=== PATIENT | female | born 1955 | race Caucasian/White ===

== ENCOUNTER 2019-03-21 14:01 | Observation (INO) | payer MEDICAID, SELFPAY | END 2019-03-22 10:34 | disposition skilled nursing facility (03) | PROVIDERS: Admitting Provider Internal Medicine; Family Provider Internal Medicine; Visit Provider Internal Medicine | DX: D50.9 Iron deficiency anemia, unspecified (principal) ==

== ENCOUNTER 2019-03-28 06:00 | Outpatient (RCR) | payer MEDICAID, SELFPAY | END 2019-03-29 23:59 | disposition home or self-care (01) | LOC: LAB 06:00 | PROVIDERS: Family Provider Internal Medicine; Visit Provider Internal Medicine | DX: D64.9 Anemia, unspecified (principal); I27.0 Primary pulmonary hypertension; I73.00 Raynaud's syndrome without gangrene; E11.9 Type 2 diabetes mellitus without complications; N39.0 Urinary tract infection, site not specified; K72.91 Hepatic failure, unspecified with coma; K92.2 Gastrointestinal hemorrhage, unspecified; E16.2 Hypoglycemia, unspecified; J81.1 Chronic pulmonary edema | CPT/HCPCS: 36415; 80048; 85025 ×2 ==

== ENCOUNTER 2019-03-28 12:04 | Emergency (ER) | payer MEDICAID, SELFPAY | END 2019-03-28 15:13 | disposition admitted as inpatient to this hospital (09) | LOC: ER 05-12 10:56 | PROVIDERS: Emergency Provider Family Medicine; Family Provider Internal Medicine; PCP Internal Medicine | DX: K72.10 Chronic hepatic failure without coma (principal); D64.9 Anemia, unspecified; K74.60 Unspecified cirrhosis of liver; I10 Essential (primary) hypertension; E11.9 Type 2 diabetes mellitus without complications; Z86.718 Personal history of other venous thrombosis and embolism; E78.5 Hyperlipidemia, unspecified; Z86.73 Personal history of transient ischemic attack (TIA), and cerebral infarction without residual deficits; Q27.39 Arteriovenous malformation, other site | CPT/HCPCS: 36415; 80053; 81001; 82140; 82962; 84443; 85025; 87040; 87086; 99285 ==

== ENCOUNTER 2019-03-28 15:13 | Inpatient (IN) | payer MEDICAID, SELFPAY ==
[2019-03-30 03:55] VITALS: BP 128/74; PULSE 74; RESP 18; TEMP 36.5; O2SAT 100
[2019-03-30 05:30] LABS: Add RBC Morph No
[2019-03-30 05:35] LABS: Basophils % 0.9 %; Eosinophils # 0.3 10^3/uL (0.0-0.8); Eosinophils % 6.8 %; Hematocrit 27.3 % (37.0-47.0); Hemoglobin 8.7 g/dL (11.5-15.3); Lymphocytes # 0.6 10^3/uL (0.8-4.8); Lymphocytes % 12.9 %; Mean Corpuscular HGB Conc 31.9 g/dL (30.0-36.0); Mean Corpuscular Hemoglobin 30.5 pg (28.0-34.0); Mean Corpuscular Volume 95.8 fL (81-99); Mean Platelet Volume 9.7 fL (7.4-10.4); Monocytes # 0.4 10^3/uL (0.2-0.9); Monocytes % 8.3 %; Neutrophils # 3.3 10^3/uL (1.8-7.7); Neutrophils % 70.9 %; Nucleated Red Blood Cells % 0 %; Platelet Count 262 10^3/cmm (130-400); Red Blood Count 2.85 10^6/uL (4.1-5.3); Red Cell Distribution Width 19.9 % (12.1-15.1); White Blood Count 4.6 10^3/uL (4.0-10.0)
[2019-03-30] MEDS: dextrose 5% 1,000 ML 50 ML IV (05:44)
[2019-03-30] MEDS: pantoprazole 40 mg SDV IVP ×2 (05:46→17:52)
[2019-03-30 05:54] LABS: Alanine Aminotransferase 14 U/L (0-33); Albumin Level 3.3 g/dL (3.5-5.2); Alkaline Phosphatase 95 IU/L (35-105); Anion Gap 13.3 (5-19); Aspartate Amino Transferase 41 U/L (0-32); Blood Urea Nitrogen 28 mg/dL (8-23); Calcium 10.3 mg/Dl (8.8-10.2); Carbon Dioxide 18 mmol/L (22-29); Chloride 113 mmol/L (98-107); Globulin 2.6 g/dL (1.3-4.6); Glomerular Filtration Rate 41.6 mL/min (90-130); Glucose 170 mg/dL (74-106); Potassium 4.3 mmol/L (3.5-5.1); Sodium 140 mmol/L (136-145); Total Bilirubin 1.6 mg/dL (0.15-1.2); Total Protein 5.9 g/dL (6.6-8.7)
[2019-03-30 07:03] LABS: Ammonia 64 umol/L (11-51)
[2019-03-30 07:13] VITALS: BP 133/75; PULSE 68; RESP 18; TEMP 36.5; O2SAT 100
[2019-03-30] MEDS: erythromycin Op Oint 1 gm 1 APPLIC EYE-RIGHT ×4 (10:05→18:02)
[2019-03-30] MEDS: midodrine 5 mg TABLET 10 MG PO (10:06)
[2019-03-30] MEDS: nystatin cream 30 gm 1 APPLIC TOPICAL ×2 (10:07→17:58)
[2019-03-30 11:10] VITALS: BP 133/72; PULSE 64; RESP 18; TEMP 36.4; O2SAT 100
--- NOTE | 2019-03-30 11:20 | PC.NURSE ---
PATIENT IN ROOM YELLING AT STAFF. NURSE IS UNABLE TO REDIRECT PATIENT. PATIENT IS ATTEMPTING TO HIT NURSES. NURSE HAS NOTIFIED DR. STOKES. ORDERS TO FOLLOW.
[2019-03-30] MEDS: LORazepam 2 mg/mL INJ 1 mL 1 MG IVP (11:36)
--- NOTE | 2019-03-30 11:47 | P.PN_ITS ---
Subjective Subjective: Interval history: This morning she is more alert, and spontaneously moving around, however, she is confused, agitated, yelling, and trying to hit nursing staff. Received 1 mg of Ativan which helped her calm down. At this time answers most questions with I do not know, I am sleeping . Vitals/I&O/Wt Last Vital Signs Temp 97.5 F L 03/30/19 11:10 Pulse 64 03/30/19 11:10 Resp 18 03/30/19 11:10 BP 133/72 03/30/19 11:10 Pulse Ox 100 03/30/19 11:10 03/29/19 03/30/19 03/30/19 22:59 06:59 14:59 Intake Total 20.833 / 20.833 Balance 20.833 / 20.833 Weight last 48 hrs Weight 77.156 kg Weight 78.744 kg Physical Exam Const: COMMON NORMALS: no apparent distress; negative for oriented x3 GENERAL APPEARANCE: combative ORIENTATION /CONSCIOUSNESS: Yes confused HENMT: COMMON NORMALS: oropharynx normal Neck/C-Spine: COMMON NORMALS: no JVD Resp: COMMON NORMALS: normal respiratory effort and clear to auscultation bilaterally AUSCULTATION: clear to auscultation bilaterally Cardio: COMMON NORMALS: no JVD, regular rhythm, S1 normal heart sound, S2 normal heart sound and no murmurs RHYTHM: regular rhythm HEART SOUNDS: S1 normal and S2 normal GI: COMMON NORMALS: normal to inspection, nondistended, normoactive bowel sounds, soft to palpation and non-tender PALPATION: Yes soft Extremity: COMMON NORMALS: no joint enlargement and no pedal edema Neuro: COMMON NORMALS: moves all extremities; negative for oriented x3 SENSORIUM/ORIENTATION: Yes somnolent SPEECH: speech normal Skin: COMMON NORMALS: no rashes or lesions noted GENERAL SKIN EXAM: no rashes or lesions noted Data Labs: Other Labs: All Labs last 24 hrs except CBC/BMP 03/29/19 03/29/19 03/29/19 05:06 05:06 05:06 RBC 2.61 L MCV 98.1 D MCH 30.3 MCHC 30.9 RDW 20.4 H MPV 9.5 Neut % (Auto) 68.8 Lymph % (Auto) 12.8 Cameron % (Auto) 11.3 Eos % (Auto) 6.1 Baso % (Auto) 0.7 Neut # (Auto) 4.0 Lymph # (Auto) 0.7 L Cameron # (Auto) 0.7 Eos # (Auto) 0.4 Baso # (Auto) 0.0 Nucleated RBC % (a uto) 0 Nucleated RBCs # 0.0 GFR Calculation 45.7 L POC Glucose Random Glucose 72 Calcium 10.3 H Total Bilirubin 2.2 H AST 37 H ALT 12 Alkaline Phosphata se 86 Ammonia 178 H Total Protein 5.2 L Albumin 3.1 L Globulin 2.1 Influenza Type A A g Influenza Type B A g 03/29/19 03/29/19 03/29/19 09:29 10:40 11:31 RBC MCV MCH MCHC RDW MPV Neut % (Auto) Lymph % (Auto) Cameron % (Auto) Eos % (Auto) Baso % (Auto) Neut # (Auto) Lymph # (Auto) Cameron # (Auto) Eos # (Auto) Baso # (Auto) Nucleated RBC % (a uto) Nucleated RBCs # GFR Calculation POC Glucose 74 87 Random Glucose Calcium Total Bilirubin AST ALT Alkaline Phosphata se Ammonia Total Protein Albumin Globulin Influenza Type A A g NEGATIVE Influenza Type B A g NEGATIVE 03/29/19 03/29/19 03/30/19 16:31 21:37 05:20 RBC 2.85 L MCV 95.8 MCH 30.5 MCHC 31.9 RDW 19.9 H MPV 9.7 Neut % (Auto) 70.9 Lymph % (Auto) 12.9 Cameron % (Auto) 8.3 Eos % (Auto) 6.8 Baso % (Auto) 0.9 Neut # (Auto) 3.3 Lymph # (Auto) 0.6 L Cameron # (Auto) 0.4 Eos # (Auto) 0.3 Baso # (Auto) 0.0 Nucleated RBC % (a uto) 0 Nucleated RBCs # 0.0 GFR Calculation POC Glucose 101 121 H Random Glucose Calcium Total Bilirubin AST ALT Alkaline Phosphata se Ammonia Total Protein Albumin Globulin Influenza Type A A g Influenza Type B A g 03/30/19 05:20 RBC MCV MCH MCHC RDW MPV Neut % (Auto) Lymph % (Auto) Cameron % (Auto) Eos % (Auto) Baso % (Auto) Neut # (Auto) Lymph # (Auto) Cameron # (Auto) Eos # (Auto) Baso # (Auto) Nucleated RBC % (a uto) Nucleated RBCs # GFR Calculation 41.6 L POC Glucose Random Glucose Calcium 10.3 H Total Bilirubin 1.6 H AST 41 H ALT 14 Alkaline Phosphata se 95 Ammonia 64 H Total Protein 5.9 L Albumin 3.3 L Globulin 2.6 Influenza Type A A g Influenza Type B A g A&P Assessment and plan (1) Toxic metabolic encephalopathy: More alert, with spontaneous movements this morning, however, confused, yelling and trying to hit staff. Agitation improved with 1 mg of Ativan. Continues with one-to-one sitter. Ammonia this morning is improved, down to 64. She appears to have also encephalopathy secondary to urinary tract infection. Status: Acute Code(s): G92 - Toxic encephalopathy (2) Complicated urinary tract infection: With acute encephalopathy. Previous history of ESBL UTI. Currently 80-90,000 CFU gram-negative rods in urine. We will start her on Primaxin. Status: Acute Code(s): N39.0 - Urinary tract infection, site not specified (3) Acute on chronic anemia: Recheck CBC. Status: Acute Code(s): D64.9 - Anemia, unspecified (4) Hypoglycemia: Improved. Continue D5W for now. Once more alert trial of clear liquid diet. Status: Acute Code(s): E16.2 - Hypoglycemia, unspecified (5) Hepatic encephalopathy: Continue lactulose. Not taking much by mouth due to encephalopathy. Has been receiving lactulose enemas. Continue for now until able to resume oral intake. Status: Acute Code(s): K72.90 - Hepatic failure, unspecified without coma (6) Difficult intravenous access: Requiring PICC line during prior admission. Status: Acute Code(s): Z78.9 - Other specified health status (7) Anemia: Chronic multifactorial anemia with AVM, history of esophageal variceal bleeding, with iron deficiency anemia, anemia of chronic disease, suspected early MDS Status: Acute Code(s): D64.9 - Anemia, unspecified (8) Chronic diastolic CHF (congestive heart failure): Status: Acute Code(s): I50.32 - Chronic diastolic (congestive) heart failure (9) HTN (hypertension): Status: Acute Code(s): I10 - Essential (primary) hypertension (10) History of CVA (cerebrovascular accident): Status: Acute Code(s): Z86.73 - Personal history of transient ischemic attack (TIA), and cerebral infarction without residual deficits (11) Chronic kidney disease, stage III (moderate): Status: Acute Code(s): N18.3 - Chronic kidney disease, stage 3 (moderate) (12) Anxiety disorder: Status: Acute Code(s): F41.9 - Anxiety disorder, unspecified (13) Depression: Status: Acute Code(s): F32.9 - Major depressive disorder, single episode, unspecified (14) ZEB (obstructive sleep apnea): Status: Acute Code(s): G47.33 - Obstructive sleep apnea (adult) (pediatric) (15) DM type 2 (diabetes mellitus, type 2): Status: Acute Code(s): E11.9 - Type 2 diabetes mellitus without complications Additional A&P Information Additional A&P Information: Glaucoma, Cataracts, Chronic conjunctivitis secondary to trauma Attestations Medical Necessity Statement*: Continue admission for assessment of management of acute encephalopathy, complicated UTI with history of ESBL infection, acute on chronic anemia. Coding Level of Care Code Acute Debt Recovery Officer for Chg Fwd Diagnoses Toxic metabolic encephalopathy G92 Complicated urinary tract infection N39.0 Acute on chronic anemia D64.9 Hypoglycemia E16.2 Hepatic encephalopathy K72.90 Difficult intravenous access Z78.9 Anemia D64.9 Chronic diastolic CHF (congestive heart failure) I50.32 HTN (hypertension) I10 History of CVA (cerebrovascular accident) Z86.73 Chronic kidney disease, stage III (moderate) N18.3 Anxiety disorder F41.9 Depression F32.9 ZEB (obstructive sleep apnea) G47.33 DM type 2 (diabetes mellitus, type 2) E11.9
[2019-03-30] MEDS: lactulose oral liq 20 gm/30 mL UDC PR ×4 (12:23→20:18)
--- NOTE | 2019-03-30 13:20 | PC.PHAR ---
RENAL DOSING PER PROTOCOL. ADJUSTED PRIMAXIN TO Q8H FROM Q6H
[2019-03-30] MEDS: neomycin-poly-dex Op 5 mL Btl EYE-BOTH ×3 (13:26→22:30)
[2019-03-30 16:00] VITALS: BP 110/63; PULSE 66; RESP 18; TEMP 36.4; O2SAT 99
[2019-03-30 17:43] LABS: Glucose Point of Care 130 mg/dL (70-110)
[2019-03-30 18:46] VITALS: PULSE 95; O2SAT 98
[2019-03-30 22:16] LABS: Glucose Point of Care 166 mg/dL (70-110)
[2019-03-31] VITALS (8 sets, daily range): BP systolic 118–154; BP diastolic 66–82; PULSE 60–72; RESP 16–30; TEMP 36.4–37.4; O2SAT 99–100
[2019-03-31] MEDS: lactulose oral liq 20 gm/30 mL UDC PR ×4 (01:53→09:39)
[2019-03-31] MEDS: erythromycin Op Oint 1 gm 1 APPLIC EYE-RIGHT ×6 (01:54→22:00)
[2019-03-31] MEDS: dextrose 5% 1,000 ML 50 ML IV ×2 (02:40→21:53)
[2019-03-31] MEDS: morphine 4 mg/mL SDV 1 mL 2 MG IVP (04:13)
[2019-03-31] MEDS: neomycin-poly-dex Op 5 mL Btl EYE-BOTH ×6 (04:14→21:57)
[2019-03-31 05:58] LABS: Basophils % 0.6 %; Eosinophils # 0.3 10^3/uL (0.0-0.8); Eosinophils % 6.2 %; Hematocrit 25.6 % (37.0-47.0); Hemoglobin 7.9 g/dL (11.5-15.3); Lymphocytes # 0.3 10^3/uL (0.8-4.8); Mean Corpuscular HGB Conc 30.9 g/dL (30.0-36.0); Mean Corpuscular Hemoglobin 29.7 pg (28.0-34.0); Mean Corpuscular Volume 96.2 fL (81-99); Mean Platelet Volume 9.3 fL (7.4-10.4); Monocytes # 0.5 10^3/uL (0.2-0.9); Monocytes % 9.9 %; Neutrophils # 3.7 10^3/uL (1.8-7.7); Neutrophils % 76.1 %; Nucleated Red Blood Cells % 0 %; Platelet Count 237 10^3/cmm (130-400); Red Blood Count 2.66 10^6/uL (4.1-5.3); Red Cell Distribution Width 18.6 % (12.1-15.1); White Blood Count 4.9 10^3/uL (4.0-10.0)
[2019-03-31 06:11] LABS: Ammonia 106 umol/L (11-51)
[2019-03-31 06:16] LABS: Add RBC Morph No
[2019-03-31 06:24] LABS: Alanine Aminotransferase 13 U/L (0-33); Albumin Level 2.5 g/dL (3.5-5.2); Alkaline Phosphatase 84 IU/L (35-105); Anion Gap 15.2 (5-19); Aspartate Amino Transferase 37 U/L (0-32); Blood Urea Nitrogen 24 mg/dL (8-23); Calcium 10.1 mg/Dl (8.8-10.2); Carbon Dioxide 17 mmol/L (22-29); Chloride 110 mmol/L (98-107); Globulin 3.4 g/dL (1.3-4.6); Glomerular Filtration Rate 45.7 mL/min (90-130); Glucose 137 mg/dL (74-106); Potassium 4.2 mmol/L (3.5-5.1); Sodium 138 mmol/L (136-145); Total Bilirubin 1.1 mg/dL (0.15-1.2); Total Protein 5.9 g/dL (6.6-8.7)
[2019-03-31] MEDS: pantoprazole 40 mg SDV IVP ×2 (06:32→16:36)
[2019-03-31 06:52] LABS: Glucose Point of Care 128 mg/dL (70-110)
[2019-03-31] MEDS: nystatin cream 30 gm 1 APPLIC TOPICAL ×2 (09:35→17:24)
[2019-03-31] MEDS: midodrine 5 mg TABLET 10 MG PO ×3 (09:36→21:56)
[2019-03-31 11:36] LABS: Glucose Point of Care 130 mg/dL (70-110)
--- NOTE | 2019-03-31 16:42 | P.PN_ITS ---
Subjective Subjective: Interval history: Today she is more responsive. Denies any pain. Reports she is very hungry. Still with somewhat labile affect, screaming out that she is starving and wants to eat right now. Vitals/I&O/Wt Last Vital Signs Temp 99.3 F 03/31/19 15:17 Pulse 72 03/31/19 15:17 Resp 16 03/31/19 15:17 BP 130/80 03/31/19 15:17 Pulse Ox 100 03/31/19 15:17 03/31/19 03/31/19 03/31/19 06:59 14:59 22:59 Intake Total 1134.167 / 1234.167 340 / 340 Output Total 900 / 900 Balance 1134.167 / 354.167 -560 / -560 Weight last 48 hrs Weight 75.886 kg Weight 77.61 kg Weight 77.156 kg Physical Exam Const: COMMON NORMALS: no apparent distress; negative for oriented x3 (Knows she is in the hospital, does not remember the year) GENERAL APPEARANCE: other (Labile affect. Intermittently tossing in bed. Does answer questions and follow some commands today.) ORIENTATION/CONSCIOUSNESS: Yes confused HENMT: COMMON NORMALS: oropharynx normal Neck/C-Spine: COMMON NORMALS: no JVD Resp: COMMON NORMALS: normal respiratory effort and clear to auscultation bilaterally AUSCULTATION: clear to auscultation bilaterally Cardio: COMMON NORMALS: no JVD, regular rhythm, S1 normal heart sound, S2 normal heart sound and no murmurs RHYTHM: regular rhythm HEART SOUNDS: S1 normal and S2 normal GI: COMMON NORMALS: normal to inspection, nondistended, normoactive bowel sounds, soft to palpation and non-tender PALPATION: Yes soft Extremity: COMMON NORMALS: no joint enlargement and no pedal edema Neuro: COMMON NORMALS: moves all extremities; negative for oriented x3 (Knows she is in the hospital, does not remember the year) SENSORIUM/ORIENTATION: Yes somnolent SPEECH: speech normal Skin: COMMON NORMALS: no rashes or lesions noted GENERAL SKIN EXAM: no rashes or lesions noted A&P Assessment and plan (1) Toxic metabolic encephalopathy: Mental status improving. Still with intermittent episodes of anxiety, labile affect, yelling out her requests/throwing a tantrum. But today she knows she is in the hospital. Does not remember the year. Currently denies complaints other than being hungry. Ammonia better compared to admission, but worse compared to yesterday at 106. She appears to have also encephalopathy secondary to urinary tract infection. Today with concern for some possible aspiration with thin liquids. For now empirically start nectar thick liquids. Will ask speech therapy to assess her. Status: Acute Code(s): G92 - Toxic encephalopathy (2) Complicated urinary tract infection: With acute encephalopathy. ESBL UTI. Continue Primaxin. For now continue PICC line due to difficult venous access and need for course of IV antibiotic, follow-up blood culture. Status: Acute Code(s): N39.0 - Urinary tract infection, site not specified (3) Acute on chronic anemia: Recheck CBC. Status: Acute Code(s): D64.9 - Anemia, unspecified (4) Hypoglycemia: Improved. Diet advanced. Status: Acute Code(s): E16.2 - Hypoglycemia, unspecified (5) Hepatic encephalopathy: Continue lactulose. If oral intake stable may transition to oral lactulose. Status: Acute Code(s): K72.90 - Hepatic failure, unspecified without coma (6) Difficult intravenous access: Requiring PICC line during prior admission. Status: Acute Code(s): Z78.9 - Other specified health status (7) Anemia: Chronic multifactorial anemia with AVM, history of esophageal variceal bleeding, with iron deficiency anemia, anemia of chronic disease, suspected early MDS Hemoglobin down slightly to 7.9. Continue to monitor. Status: Acute Code(s): D64.9 - Anemia, unspecified (8) Chronic diastolic CHF (congestive heart failure): Status: Acute Code(s): I50.32 - Chronic diastolic (congestive) heart failure (9) HTN (hypertension): Status: Acute Code(s): I10 - Essential (primary) hypertension (10) History of CVA (cerebrovascular accident): Status: Acute Code(s): Z86.73 - Personal history of transient ischemic attack (TIA), and cerebral infarction without residual deficits (11) Chronic kidney disease, stage III (moderate): Status: Acute Code(s): N18.3 - Chronic kidney disease, stage 3 (moderate) (12) Anxiety disorder: Status: Acute Code(s): F41.9 - Anxiety disorder, unspecified (13) Depression: Status: Acute Code(s): F32.9 - Major depressive disorder, single episode, unspecified (14) ZEB (obstructive sleep apnea): Status: Acute Code(s): G47.33 - Obstructive sleep apnea (adult) (pediatric) (15) DM type 2 (diabetes mellitus, type 2): Status: Acute Code(s): E11.9 - Type 2 diabetes mellitus without complications Additional A&P Information Additional A&P Information: Glaucoma, Cataracts, Chronic conjunctivitis secondary to trauma Attestations Medical Necessity Statement*: Continue admission for assessment management of acute encephalopathy with complicated UTI, hepatic encephalopathy, with multiple other medical comorbidities.. Coding Level of Care Code Acute Cotton Bag Clipper for Chg Fwd Exam Problem Focused Diagnoses Toxic metabolic encephalopathy G92 Complicated urinary tract infection N39.0 Acute on chronic anemia D64.9 Hypoglycemia E16.2 Hepatic encephalopathy K72.90 Difficult intravenous access Z78.9 Anemia D64.9 Chronic diastolic CHF (congestive heart failure) I50.32 HTN (hypertension) I10 History of CVA (cerebrovascular accident) Z86.73 Chronic kidney disease, stage III (moderate) N18.3 Anxiety disorder F41.9 Depression F32.9 ZEB (obstructive sleep apnea) G47.33 DM type 2 (diabetes mellitus, type 2) E11.9
[2019-03-31 16:58] LABS: Glucose Point of Care 208 mg/dL (70-110)
[2019-03-31 21:02] LABS: Glucose Point of Care 166 mg/dL (70-110)
[2019-04-01] VITALS (9 sets, daily range): BP systolic 112–137; BP diastolic 74–80; PULSE 63–80; RESP 17–19; TEMP 36.7–37.2; O2SAT 97–100; BMI 27.1
[2019-04-01] MEDS: lactulose oral liq 20 gm/30 mL UDC PR ×3 (00:19→04:49)
[2019-04-01] MEDS: neomycin-poly-dex Op 5 mL Btl EYE-BOTH ×6 (02:23→21:47)
[2019-04-01] MEDS: erythromycin Op Oint 1 gm 1 APPLIC EYE-RIGHT ×6 (02:24→22:54)
[2019-04-01] MEDS: pantoprazole 40 mg SDV IVP ×2 (04:49→16:29)
[2019-04-01 07:00] LABS: Glucose Point of Care 157 mg/dL (70-110)
[2019-04-01 07:33] LABS: Basophils % 0.7 %; Eosinophils # 0.3 10^3/uL (0.0-0.8); Eosinophils % 5.8 %; Hematocrit 24.9 % (37.0-47.0); Hemoglobin 7.8 g/dL (11.5-15.3); Lymphocytes # 0.4 10^3/uL (0.8-4.8); Lymphocytes % 8.1 %; Mean Corpuscular HGB Conc 31.3 g/dL (30.0-36.0); Mean Corpuscular Hemoglobin 29.7 pg (28.0-34.0); Mean Corpuscular Volume 94.7 fL (81-99); Mean Platelet Volume 9.4 fL (7.4-10.4); Monocytes # 0.6 10^3/uL (0.2-0.9); Monocytes % 14.2 %; Neutrophils # 3.2 10^3/uL (1.8-7.7); Neutrophils % 70.8 %; Nucleated Red Blood Cells % 0 %; Platelet Count 256 10^3/cmm (130-400); Red Blood Count 2.63 10^6/uL (4.1-5.3); Red Cell Distribution Width 17.3 % (12.1-15.1); White Blood Count 4.5 10^3/uL (4.0-10.0)
[2019-04-01 07:51] LABS: Ammonia 83 umol/L (11-51)
[2019-04-01 07:52] LABS: Alanine Aminotransferase 13 U/L (0-33); Albumin Level 2.8 g/dL (3.5-5.2); Alkaline Phosphatase 89 IU/L (35-105); Anion Gap 12.4 (5-19); Aspartate Amino Transferase 42 U/L (0-32); Blood Urea Nitrogen 21 mg/dL (8-23); Calcium 9.9 mg/Dl (8.8-10.2); Carbon Dioxide 17 mmol/L (22-29); Chloride 112 mmol/L (98-107); Globulin 2.7 g/dL (1.3-4.6); Glomerular Filtration Rate 45.7 mL/min (90-130); Glucose 131 mg/dL (74-106); Potassium 4.4 mmol/L (3.5-5.1); Sodium 137 mmol/L (136-145); Total Bilirubin 0.8 mg/dL (0.15-1.2); Total Protein 5.5 g/dL (6.6-8.7)
[2019-04-01] MEDS: midodrine 5 mg TABLET 10 MG PO ×3 (09:32→21:45)
[2019-04-01] MEDS: nystatin cream 30 gm 1 APPLIC TOPICAL ×2 (09:34→19:40)
[2019-04-01 12:12] LABS: Glucose Point of Care 228 mg/dL (70-110)
[2019-04-01 19:01] LABS: Glucose Point of Care 160 mg/dL (70-110)
--- NOTE | 2019-04-01 19:02 | P.PN_ITS ---
Subjective Subjective: Interval history: Today she is more awake still. Knows she is in the hospital. When asked about the year states 20 . Denies current complaints. Reports she is overall feeling better. Vitals/I&O/Wt Last Vital Signs Temp 98.5 F 04/01/19 15:51 Pulse 80 04/01/19 15:51 Resp 18 04/01/19 15:51 BP 127/76 04/01/19 15:51 Pulse Ox 99 04/01/19 15:51 04/01/19 04/01/19 04/01/19 06:59 14:59 22:59 Intake Total 465.833 / 1823.334 360 / 360 100 / 460 Output Total 575 / 1800 Balance -109.167 / 23.334 360 / 360 100 / 460 Weight last 48 hrs Weight 78.642 kg Weight 75.886 kg Weight 77.61 kg Physical Exam Const: COMMON NORMALS: no apparent distress and oriented x3 (Knows she is in the hospital, states that the year is 20 ) GENERAL APPEARANCE: other (Labile affect. Intermittently tossing in bed. Does answer questions and follow some commands today.) HENMT: COMMON NORMALS: oropharynx normal Neck/C-Spine: COMMON NORMALS: no JVD Resp: COMMON NORMALS: normal respiratory effort and clear to auscultation bilaterally AUSCULTATION: clear to auscultation bilaterally Cardio: COMMON NORMALS: no JVD, regular rhythm, S1 normal heart sound, S2 normal heart sound and no murmurs RHYTHM: regular rhythm HEART SOUNDS: S1 normal and S2 normal GI: COMMON NORMALS: normal to inspection, nondistended, normoactive bowel sounds, soft to palpation and non-tender PALPATION: Yes soft Extremity: COMMON NORMALS: no joint enlargement and no pedal edema Neuro: COMMON NORMALS: oriented x3 (Knows she is in the hospital, states that the year is 20 ) and moves all extremities SENSORIUM/ORIENTATION: Yes somnolent SPEECH: speech normal Skin: COMMON NORMALS: no rashes or lesions noted GENERAL SKIN EXAM: no rashes or lesions noted A&P Assessment and plan (1) Toxic metabolic encephalopathy: Gradual improvement in mental status. Still with intermittent episodes of anxiety. She is generally weak, unable to take big bites of food or drinks of water. For now still too weak to try to take lactulose by mouth. Has still been requiring enemas. Ammonia with some improvement. Asked speech therapy to assess her. Continue antibiotic for complicated UTI. Status: Acute Code(s): G92 - Toxic encephalopathy (2) Complicated urinary tract infection: With acute encephalopathy. ESBL UTI. Continue Primaxin. For now continue PICC line due to difficult venous access and need for course of IV antibiotic, follow-up blood culture. Status: Acute Code(s): N39.0 - Urinary tract infection, site not specified (3) Acute on chronic anemia: Hemoglobin stabilized around 8. Status: Acute Code(s): D64.9 - Anemia, unspecified (4) Hypoglycemia: Improved. Diet advanced. Status: Acute Code(s): E16.2 - Hypoglycemia, unspecified (5) Hepatic encephalopathy: Continue lactulose. If oral intake stable may transition to oral lactulose. Status: Acute Code(s): K72.90 - Hepatic failure, unspecified without coma (6) Difficult intravenous access: Requiring PICC line during prior admission. Status: Acute Code(s): Z78.9 - Other specified health status (7) Anemia: Chronic multifactorial anemia with AVM, history of esophageal variceal bleeding, with iron deficiency anemia, anemia of chronic disease, suspected early MDS Hemoglobin down slightly to just below 8. Continue to monitor. Status: Acute Code(s): D64.9 - Anemia, unspecified (8) Chronic diastolic CHF (congestive heart failure): Status: Acute Code(s): I50.32 - Chronic diastolic (congestive) heart failure (9) HTN (hypertension): Status: Acute Code(s): I10 - Essential (primary) hypertension (10) History of CVA (cerebrovascular accident): Status: Acute Code(s): Z86.73 - Personal history of transient ischemic attack (TIA), and cerebral infarction without residual deficits (11) Chronic kidney disease, stage III (moderate): Status: Acute Code(s): N18.3 - Chronic kidney disease, stage 3 (moderate) (12) Anxiety disorder: Status: Acute Code(s): F41.9 - Anxiety disorder, unspecified (13) Depression: Status: Acute Code(s): F32.9 - Major depressive disorder, single episode, unspecified (14) ZEB (obstructive sleep apnea): Status: Acute Code(s): G47.33 - Obstructive sleep apnea (adult) (pediatric) (15) DM type 2 (diabetes mellitus, type 2): Status: Acute Code(s): E11.9 - Type 2 diabetes mellitus without complications Additional A&P Information Additional A&P Information: Glaucoma, Cataracts, Chronic conjunctivitis secondary to trauma Attestations Medical Necessity Statement*: Continue admission for assessment management of acute encephalopathy, hepatic encephalopathy, complicated UTI. Coding Level of Care Code Acute Boat Canvas Maker And Installer for [facility] Fwd Diagnoses Toxic metabolic encephalopathy G92 Complicated urinary tract infection N39.0 Acute on chronic anemia D64.9 Hypoglycemia E16.2 Hepatic encephalopathy K72.90 Difficult intravenous access Z78.9 Anemia D64.9 Chronic diastolic CHF (congestive heart failure) I50.32 HTN (hypertension) I10 History of CVA (cerebrovascular accident) Z86.73 Chronic kidney disease, stage III (moderate) N18.3 Anxiety disorder F41.9 Depression F32.9 ZEB (obstructive sleep apnea) G47.33 DM type 2 (diabetes mellitus, type 2) E11.9
[2019-04-01] MEDS: dextrose 5% 1,000 ML 50 ML IV (19:48)
[2019-04-01 21:45] LABS: Glucose Point of Care 179 mg/dL (70-110)
[2019-04-02] VITALS (8 sets, daily range): BP systolic 102–128; BP diastolic 63–82; PULSE 67–84; RESP 17–18; TEMP 36.3–37; O2SAT 94–100
[2019-04-02] MEDS: neomycin-poly-dex Op 5 mL Btl EYE-BOTH ×6 (01:32→21:31)
[2019-04-02] MEDS: lactulose oral liq 20 gm/30 mL UDC 200 GM PR (01:48)
[2019-04-02] MEDS: erythromycin Op Oint 1 gm 1 APPLIC EYE-RIGHT ×6 (02:30→23:23)
[2019-04-02] MEDS: pantoprazole 40 mg SDV IVP ×2 (06:04→18:03)
[2019-04-02 06:13] LABS: Basophils % 0.5 %; Eosinophils # 0.2 10^3/uL (0.0-0.8); Eosinophils % 4.8 %; Hematocrit 24.6 % (37.0-47.0); Hemoglobin 7.6 g/dL (11.5-15.3); Lymphocytes # 0.4 10^3/uL (0.8-4.8); Lymphocytes % 8.3 %; Mean Corpuscular HGB Conc 30.9 g/dL (30.0-36.0); Mean Corpuscular Hemoglobin 29.1 pg (28.0-34.0); Mean Corpuscular Volume 94.3 fL (81-99); Monocytes # 0.5 10^3/uL (0.2-0.9); Monocytes % 11.7 %; Neutrophils # 3.3 10^3/uL (1.8-7.7); Neutrophils % 74.5 %; Nucleated Red Blood Cells % 0 %; Platelet Count 238 10^3/cmm (130-400); Red Blood Count 2.61 10^6/uL (4.1-5.3); Red Cell Distribution Width 16.7 % (12.1-15.1); White Blood Count 4.4 10^3/uL (4.0-10.0)
[2019-04-02 06:39] LABS: Ammonia 85 umol/L (11-51)
[2019-04-02 06:40] LABS: Alanine Aminotransferase 11 U/L (0-33); Albumin Level 2.9 g/dL (3.5-5.2); Alkaline Phosphatase 91 IU/L (35-105); Anion Gap 11.2 (5-19); Aspartate Amino Transferase 38 U/L (0-32); Blood Urea Nitrogen 22 mg/dL (8-23); Calcium 9.8 mg/Dl (8.8-10.2); Carbon Dioxide 18 mmol/L (22-29); Chloride 109 mmol/L (98-107); Globulin 2.5 g/dL (1.3-4.6); Glomerular Filtration Rate 45.7 mL/min (90-130); Glucose 185 mg/dL (74-106); Potassium 4.2 mmol/L (3.5-5.1); Sodium 134 mmol/L (136-145); Total Bilirubin 0.5 mg/dL (0.15-1.2); Total Protein 5.4 g/dL (6.6-8.7)
[2019-04-02 07:51] LABS: Glucose Point of Care 171 mg/dL (70-110)
[2019-04-02 07:51] LABS: Glucose Point of Care 158 mg/dL (70-110)
[2019-04-02] MEDS: midodrine 5 mg TABLET 10 MG PO ×3 (09:48→21:22)
[2019-04-02] MEDS: nystatin cream 30 gm 1 APPLIC TOPICAL ×2 (09:49→18:18)
[2019-04-02 12:03] LABS: Glucose Point of Care 181 mg/dL (70-110)
--- NOTE | 2019-04-02 13:42 | PM.PN ---
Subjective Subjective: Interval history: She complains of being hungry. Denies any other issues. Denies any abdominal pain. Denies any flank pain. She appears to realize she is in a medical facility, but is not sure where. When asked whether she is in a longterm states yes. When asked the year states 1919. Vitals/I&O/Wt Last Vital Signs Temp 97.4 F L 04/02/19 10:59 Pulse 74 04/02/19 10:59 Resp 18 04/02/19 10:59 BP 121/72 04/02/19 10:59 Pulse Ox 100 04/02/19 10:59 04/01/19 04/02/19 04/02/19 22:59 06:59 14:59 Intake Total 991.667 / 1351.667 495.833 / 1847.500 240 / 240 Output Total 1000 / 1000 900 / 1900 Balance -8.333 / 351.667 -404.167 / -52.500 240 / 240 Weight last 48 hrs Weight 78.471 kg Weight 78.642 kg Physical Exam Const: COMMON NORMALS: no apparent distress; negative for oriented x3 (states that the year is 1919 ) GENERAL APPEARANCE: other (Does answer questions and follows commands.) ORIENTATION/CONSCIOUSNESS: Yes confused HENMT: COMMON NORMALS: oropharynx normal Neck/C-Spine: COMMON NORMALS: no JVD Resp: COMMON NORMALS: normal respiratory effort and clear to auscultation bilaterally AUSCULTATION: clear to auscultation bilaterally Cardio: COMMON NORMALS: no JVD, regular rhythm, S1 normal heart sound, S2 normal heart sound and no murmurs RHYTHM: regular rhythm HEART SOUNDS: S1 normal and S2 normal GI: COMMON NORMALS: normal to inspection, nondistended, normoactive bowel sounds, soft to palpation and non-tender PALPATION: Yes soft Extremity: COMMON NORMALS: no joint enlargement and no pedal edema Neuro: COMMON NORMALS: moves all extremities; negative for oriented x3 (states that the year is 1919 ) SENSORIUM/ORIENTATION: Yes somnolent SPEECH: speech normal Skin: COMMON NORMALS: no rashes or lesions noted GENERAL SKIN EXAM: no rashes or lesions noted A&P Assessment and plan (1) Toxic metabolic encephalopathy: She is getting stronger, although slowly. Ammonia improved compared to presentation, however, still 84. She appears to be eating better, more alert. We will try to switch her lactulose to oral formulation as it appears enemas have been given inconsistently. Dysphagia pur?ed diet with honey consistency liquid recommended by speech therapy. Continue antibiotic for complicated UTI. We will ask for PT and OT evaluation. Status: Acute Code(s): G92 - Toxic encephalopathy (2) Complicated urinary tract infection: With acute encephalopathy. ESBL UTI. Continue Primaxin. For now continue PICC line due to difficult venous access and need for course of IV antibiotic. Status: Acute Code(s): N39.0 - Urinary tract infection, site not specified (3) Acute on chronic anemia: Hemoglobin stabilized around 8. Status: Acute Code(s): D64.9 - Anemia, unspecified (4) Hypoglycemia: Improved. Diet advanced. Status: Acute Code(s): E16.2 - Hypoglycemia, unspecified (5) Hepatic encephalopathy: Continue lactulose. If oral intake stable may transition to oral lactulose. Status: Acute Code(s): K72.90 - Hepatic failure, unspecified without coma (6) Difficult intravenous access: Requiring PICC line during prior admission. Status: Acute Code(s): Z78.9 - Other specified health status (7) Anemia: Chronic multifactorial anemia with AVM, history of esophageal variceal bleeding, with iron deficiency anemia, anemia of chronic disease, suspected early MDS Hemoglobin down slightly to just below 8. Continue to monitor. Status: Acute Code(s): D64.9 - Anemia, unspecified (8) Chronic diastolic CHF (congestive heart failure): Status: Acute Code(s): I50.32 - Chronic diastolic (congestive) heart failure (9) HTN (hypertension): Status: Acute Code(s): I10 - Essential (primary) hypertension (10) History of CVA (cerebrovascular accident): Status: Acute Code(s): Z86.73 - Personal history of transient ischemic attack (TIA), and cerebral infarction without residual deficits (11) Chronic kidney disease, stage III (moderate): Status: Acute Code(s): N18.3 - Chronic kidney disease, stage 3 (moderate) (12) Anxiety disorder: Status: Acute Code(s): F41.9 - Anxiety disorder, unspecified (13) Depression: Status: Acute Code(s): F32.9 - Major depressive disorder, single episode, unspecified (14) ZEB (obstructive sleep apnea): Status: Acute Code(s): G47.33 - Obstructive sleep apnea (adult) (pediatric) (15) DM type 2 (diabetes mellitus, type 2): Status: Acute Code(s): E11.9 - Type 2 diabetes mellitus without complications Additional A&P Information Additional A&P Information: Glaucoma, Cataracts, Chronic conjunctivitis secondary to trauma Attestations Medical Necessity Statement*: Continue admission for assessment management of acute encephalopathy, hepatic encephalopathy, complicated UTI with multidrug-resistant organism. Coding Level of Care Code Acute Oil Well Service Operator Helper for g Fwd Diagnoses Toxic metabolic encephalopathy G92 Complicated urinary tract infection N39.0 Acute on chronic anemia D64.9 Hypoglycemia E16.2 Hepatic encephalopathy K72.90 Difficult intravenous access Z78.9 Anemia D64.9 Chronic diastolic CHF (congestive heart failure) I50.32 HTN (hypertension) I10 History of CVA (cerebrovascular accident) Z86.73 Chronic kidney disease, stage III (moderate) N18.3 Anxiety disorder F41.9 Depression F32.9 ZEB (obstructive sleep apnea) G47.33 DM type 2 (diabetes mellitus, type 2) E11.9
[2019-04-02] MEDS: dextrose 5% 1,000 ML 50 ML IV (15:07)
[2019-04-02 17:24] LABS: Glucose Point of Care 168 mg/dL (70-110)
[2019-04-02] MEDS: lactulose oral liq 20 gm/30 mL UDC PO (21:22)
[2019-04-02 21:28] LABS: Glucose Point of Care 277 mg/dL (70-110)
[2019-04-03] VITALS (7 sets, daily range): BP systolic 108–125; BP diastolic 68–77; PULSE 76–96; RESP 17–22; TEMP 36.6–37.1; O2SAT 94–100
[2019-04-03] MEDS: neomycin-poly-dex Op 5 mL Btl EYE-BOTH ×6 (02:25→21:47)
[2019-04-03] MEDS: erythromycin Op Oint 1 gm 1 APPLIC EYE-RIGHT ×5 (02:25→19:08)
[2019-04-03] MEDS: pantoprazole 40 mg SDV IVP ×2 (05:53→19:07)
[2019-04-03 06:55] LABS: Glucose Point of Care 213 mg/dL (70-110)
[2019-04-03 07:57] LABS: Basophils % 0.7 %; Eosinophils # 0.3 10^3/uL (0.0-0.8); Eosinophils % 8.1 %; Hematocrit 29.2 % (37.0-47.0); Hemoglobin 8.5 g/dL (11.5-15.3); Lymphocytes # 0.6 10^3/uL (0.8-4.8); Mean Corpuscular HGB Conc 29.1 g/dL (30.0-36.0); Mean Corpuscular Hemoglobin 30.6 pg (28.0-34.0); Mean Platelet Volume 9.1 fL (7.4-10.4); Monocytes # 0.7 10^3/uL (0.2-0.9); Monocytes % 16.6 %; Neutrophils # 2.5 10^3/uL (1.8-7.7); Neutrophils % 59.1 %; Nucleated Red Blood Cells % 0 %; Platelet Count 238 10^3/cmm (130-400); Red Blood Count 2.78 10^6/uL (4.1-5.3); Red Cell Distribution Width 16.5 % (12.1-15.1); White Blood Count 4.2 10^3/uL (4.0-10.0)
[2019-04-03 08:16] LABS: Ammonia 105 umol/L (11-51)
[2019-04-03 08:18] LABS: Alanine Aminotransferase 11 U/L (0-33); Albumin Level 3.1 g/dL (3.5-5.2); Alkaline Phosphatase 108 IU/L (35-105); Anion Gap 14.2 (5-19); Aspartate Amino Transferase 43 U/L (0-32); Blood Urea Nitrogen 20 mg/dL (8-23); Calcium 10.3 mg/Dl (8.8-10.2); Carbon Dioxide 17 mmol/L (22-29); Chloride 109 mmol/L (98-107); Globulin 2.9 g/dL (1.3-4.6); Glomerular Filtration Rate 45.7 mL/min (90-130); Glucose 198 mg/dL (74-106); Potassium 4.2 mmol/L (3.5-5.1); Sodium 136 mmol/L (136-145); Total Bilirubin 0.5 mg/dL (0.15-1.2)
[2019-04-03] MEDS: nystatin cream 30 gm 1 APPLIC TOPICAL ×2 (10:20→19:08)
[2019-04-03] MEDS: midodrine 5 mg TABLET 10 MG PO ×3 (10:22→21:43)
[2019-04-03] MEDS: lactulose oral liq 20 gm/30 mL UDC PO ×4 (10:34→19:08)
[2019-04-03 12:21] LABS: Glucose Point of Care 202 mg/dL (70-110)
--- NOTE | 2019-04-03 12:28 | PC.OT ---
OT note: Evaluation attempted. Patient in bed, awake, however very confused and oriented x 1. Patient was unable to provide accurate subjective information and history. Patient talking about Don Henly and calves and unable to be redirected. Patient refused sitting EOB to get readjusted and straighter in bed and refused sponge bath stating, sometimes I like to stay in bed and be lazy and I just dont feel like doing anything. I want to sleep . [place] [facility] [place]attempt again 04/04/19.
[2019-04-03] MEDS: dextrose 5% 1,000 ML 50 ML IV (12:59)
--- NOTE | 2019-04-03 14:42 | PC.CHAP ---
The patient is under precautions so the Long Filler Cigar Roller Machine prayed out side the room, 2 min.
--- NOTE | 2019-04-03 14:46 | PM.PN ---
Subjective Subjective: Interval history: She denies any complaints currently. Denies any pain. Appetite has been good. She remembers it is 2019. She knows she is not at home, but is not sure whether she may be at the senior living. Vitals/I&O/Wt Last Vital Signs Temp 98.8 F 04/03/19 11:56 Pulse 80 04/03/19 11:56 Resp 20 H 04/03/19 11:56 BP 125/77 04/03/19 11:56 Pulse Ox 99 04/03/19 11:56 04/02/19 04/03/19 04/03/19 22:59 06:59 14:59 Intake Total 440 / 900 840 / 1740 300 / 300 Output Total 800 / 800 Balance -360 / 100 840 / 940 300 / 300 Weight last 48 hrs Weight 78.471 kg Physical Exam Const: COMMON NORMALS: no apparent distress; negative for oriented x3 (states that the year is 1919 ) GENERAL APPEARANCE: other (Does answer questions and follows commands.) ORIENTATION/CONSCIOUSNESS: Yes confused (Mildly) OTHER: She answers questions, follows commands. Eats well with assistance. HENMT: COMMON NORMALS: oropharynx normal Neck/C-Spine: COMMON NORMALS: no JVD Resp: COMMON NORMALS: normal respiratory effort and clear to auscultation bilaterally AUSCULTATION: clear to auscultation bilaterally Cardio: COMMON NORMALS: no JVD, regular rhythm, S1 normal heart sound, S2 normal heart sound and no murmurs RHYTHM: regular rhythm HEART SOUNDS: S1 normal and S2 normal GI: COMMON NORMALS: normal to inspection, nondistended, normoactive bowel sounds, soft to palpation and non-tender PALPATION: Yes soft Extremity: COMMON NORMALS: no joint enlargement and no pedal edema Neuro: COMMON NORMALS: moves all extremities; negative for oriented x3 (states that the year is 1919 ) SENSORIUM/ORIENTATION: Yes somnolent SPEECH: speech normal Skin: COMMON NORMALS: no rashes or lesions noted GENERAL SKIN EXAM: no rashes or lesions noted A&P Assessment and plan (1) Positive blood culture: From 04/28 with Corynebacterium (see old Olacabs results). Suspect contamination, although 2/4 bottles in the presence of an old PICC line. Will request for reculture from a CVC and peripheral. Status: Acute Code(s): R78.81 - Bacteremia (2) Toxic metabolic encephalopathy: She is getting stronger, although slowly. Hyper R anemia was improving, but had a setback as she had no bowel movements yesterday. She has been awake and alert enough to switch to oral diet. We have transitioned to lactulose by mouth. Discussed with nursing staff. Repeat lactulose with target of 2-3 soft bowel movements per day. Dysphagia appears improved compared to in the evaluation as her mental status has been improving. Discussion with speech therapy may tolerate level 2 dysphagia diet with nectar thick with this. Continue antibiotic for complicated UTI. PT and OT evaluation. Status: Acute Code(s): G92 - Toxic encephalopathy (3) Complicated urinary tract infection: With acute encephalopathy. ESBL UTI. Continue Primaxin. For now continue PICC line due to difficult venous access and need for course of IV antibiotic. Status: Acute Code(s): N39.0 - Urinary tract infection, site not specified (4) Acute on chronic anemia: Hemoglobin stabilized around 8. Status: Acute Code(s): D64.9 - Anemia, unspecified (5) Hypoglycemia: Improved. Diet advanced. Status: Acute Code(s): E16.2 - Hypoglycemia, unspecified (6) Hepatic encephalopathy: Continue lactulose. If oral intake stable may transition to oral lactulose. Status: Acute Code(s): K72.90 - Hepatic failure, unspecified without coma (7) Difficult intravenous access: Requiring PICC line during prior admission. Status: Acute Code(s): Z78.9 - Other specified health status (8) Anemia: Chronic multifactorial anemia with AVM, history of esophageal variceal bleeding, with iron deficiency anemia, anemia of chronic disease, suspected early MDS Hemoglobin stabilized around 8. Continue to monitor. Status: Acute Code(s): D64.9 - Anemia, unspecified (9) Chronic diastolic CHF (congestive heart failure): Status: Acute Code(s): I50.32 - Chronic diastolic (congestive) heart failure (10) HTN (hypertension): Status: Acute Code(s): I10 - Essential (primary) hypertension (11) History of CVA (cerebrovascular accident): Status: Acute Code(s): Z86.73 - Personal history of transient ischemic attack (TIA), and cerebral infarction without residual deficits (12) Chronic kidney disease, stage III (moderate): Status: Acute Code(s): N18.3 - Chronic kidney disease, stage 3 (moderate) (13) Anxiety disorder: Status: Acute Code(s): F41.9 - Anxiety disorder, unspecified (14) Depression: Status: Acute Code(s): F32.9 - Major depressive disorder, single episode, unspecified (15) ZEB (obstructive sleep apnea): Status: Acute Code(s): G47.33 - Obstructive sleep apnea (adult) (pediatric) (16) DM type 2 (diabetes mellitus, type 2): Status: Acute Code(s): E11.9 - Type 2 diabetes mellitus without complications Additional A&P Information Additional A&P Information: Glaucoma, Cataracts, Chronic conjunctivitis secondary to trauma Attestations Medical Necessity Statement*: Continue admission for optimization of medical therapy for hepatic encephalopathy. Coding Level of Care Code Acute Cylinder Block Hole Reliner for Chg Fwd Diagnoses Positive blood culture R78.81 Toxic metabolic encephalopathy G92 Complicated urinary tract infection N39.0 Acute on chronic anemia D64.9 Hypoglycemia E16.2 Hepatic encephalopathy K72.90 Difficult intravenous access Z78.9 Anemia D64.9 Chronic diastolic CHF (congestive heart failure) I50.32 HTN (hypertension) I10 History of CVA (cerebrovascular accident) Z86.73 Chronic kidney disease, stage III (moderate) N18.3 Anxiety disorder F41.9 Depression F32.9 ZEB (obstructive sleep apnea) G47.33 DM type 2 (diabetes mellitus, type 2) E11.9
[2019-04-03 16:54] LABS: Glucose Point of Care 179 mg/dL (70-110)
[2019-04-03] MEDS: acetaminophen 325 mg Tablet 650 MG PO (17:07)
[2019-04-03 21:48] LABS: Glucose Point of Care 261 mg/dL (70-110)
[2019-04-04] VITALS (7 sets, daily range): BP systolic 111–140; BP diastolic 65–83; PULSE 78–100; RESP 18–22; TEMP 36.4–37; O2SAT 99–100
[2019-04-04] MEDS: erythromycin Op Oint 1 gm 1 APPLIC EYE-RIGHT ×6 (01:23→23:00)
[2019-04-04] MEDS: pantoprazole 40 mg SDV IVP ×2 (05:51→16:08)
[2019-04-04] MEDS: neomycin-poly-dex Op 5 mL Btl EYE-BOTH ×5 (05:52→21:11)
[2019-04-04] MEDS: dextrose 5% 1,000 ML 50 ML IV (05:52)
[2019-04-04 06:10] LABS: Basophils % 0.6 %; Eosinophils # 0.5 10^3/uL (0.0-0.8); Eosinophils % 9.3 %; Hematocrit 24.5 % (37.0-47.0); Hemoglobin 7.3 g/dL (11.5-15.3); Lymphocytes # 0.7 10^3/uL (0.8-4.8); Lymphocytes % 13.8 %; Mean Corpuscular HGB Conc 29.8 g/dL (30.0-36.0); Mean Corpuscular Hemoglobin 29.9 pg (28.0-34.0); Mean Corpuscular Volume 100.4 fL (81-99); Mean Platelet Volume 9.6 fL (7.4-10.4); Monocytes # 0.7 10^3/uL (0.2-0.9); Monocytes % 13.4 %; Neutrophils # 3.2 10^3/uL (1.8-7.7); Neutrophils % 62.7 %; Nucleated Red Blood Cells % 0 %; Platelet Count 232 10^3/cmm (130-400); Red Blood Count 2.44 10^6/uL (4.1-5.3); Red Cell Distribution Width 16.3 % (12.1-15.1); White Blood Count 5.1 10^3/uL (4.0-10.0)
[2019-04-04 06:24] LABS: Ammonia 65 umol/L (11-51)
[2019-04-04 06:30] LABS: Alanine Aminotransferase 11 U/L (0-33); Albumin Level 2.6 g/dL (3.5-5.2); Alkaline Phosphatase 116 IU/L (35-105); Anion Gap 14.1 (5-19); Aspartate Amino Transferase 41 U/L (0-32); Blood Urea Nitrogen 24 mg/dL (8-23); Calcium 10.5 mg/Dl (8.8-10.2); Carbon Dioxide 18 mmol/L (22-29); Chloride 111 mmol/L (98-107); Globulin 3.5 g/dL (1.3-4.6); Glomerular Filtration Rate 50.5 mL/min (90-130); Glucose 204 mg/dL (74-106); Potassium 4.1 mmol/L (3.5-5.1); Sodium 139 mmol/L (136-145); Total Bilirubin 0.4 mg/dL (0.15-1.2); Total Protein 6.1 g/dL (6.6-8.7)
[2019-04-04 07:48] LABS: Glucose Point of Care 211 mg/dL (70-110)
[2019-04-04] MEDS: midodrine 5 mg TABLET 10 MG PO ×3 (09:32→21:10)
[2019-04-04] MEDS: nystatin cream 30 gm 1 APPLIC TOPICAL ×2 (09:33→17:35)
[2019-04-04] MEDS: lactulose oral liq 20 gm/30 mL UDC PO (11:35)
[2019-04-04 11:55] LABS: Glucose Point of Care 166 mg/dL (70-110)
--- NOTE | 2019-04-04 14:16 | PC.CHAP ---
Pastoral Care Encounter/Spiritual Assessment Type of Contact [] Declined food service specialist visit [] Patient/Family/Request visit [] Outpatient visit [] Follow-up visit [] Physician referral [] Code/Alert [] Routine visit [] Staff referral [] Actively dying [] Patient sleeping [] Family support [] [] Out of room [] Palliative care [] [] Receiving care in room [] Pre-surgical visit [] Trauma [] Long length of stay [] ICU visit [x] Other:Room under precautions Relational/Emotional Strength [] Patient feels connected with others/family/visitors/staff [] Distress [] Loneliness/isolation [] Abandonment Spirituality of Patient [] Person of Nasreen [] Attends Restoration of their Nasreen [] Believes in Prayer [] Reads Bible or Roman Catholic materials [] There are Spiritual issues to be addressed Merchant Mill Utility Worker Interventions [] Prayer [] Active listening [] Non-anxious presence [] Spiritual/emotional support [] Crisis/trauma care [] Spiritual counseling [] Bereavement support [] Provided bereavement packet [] Provided Bible/devotional materials [] Provided toy/stuffed animal, coloring book to patient or family member [x] Completed spiritual assessment [] Provided Communion [] Anointing/[place] [] Salvation [] Other: Impact on Illness or Injury [] Angry [] Fearful [] Anxious [] Often cries [] Exhaustion [] Unable to work [] Unable to attend sabianist [] Unable to walk/stand [] Unable to read [] Unable to drive [] Unable to eat/drink [] Unable to sleep [] Unable to be with family [] Other: Summary Patient room was under precautions. Visit attempted by Merchant Mill Utility Workercristhian Green Time spent with patient 3 minutes
--- NOTE | 2019-04-04 14:28 | P.PN_ITS ---
Subjective Subjective: Interval history: Chart reviewed, patient known to me from multiple prior admissions. A.m. labs noted including decreased ammonia. Has had multiple bowel movements so far today. Arouses easily to verbal stimulation, able to tell me that she is in the hospital, tolerating oral intake well. Medications: Reviewed: Yes Medication Review Details: Current Medications Generic Name Dose Route Start Last Admin Trade Name Jetq PRN Reason Stop Dose Admin Acetaminophen 650 mg 04/03/19 16:49 04/03/19 17:07 Tylenol PO 650 mg Q6H PRN Administration MILD PAIN Erythromycin 1 applic 03/30/19 03:00 04/04/19 11:34 Erythromycin Op Oint EYE-RIGHT 1 applic Q4H YONAS Administration Dextrose 1,000 mls @ 50 ml s/hr 03/30/19 00:00 04/04/19 05:52 D5w IV 50 mls/hr .Q20H YONAS Administration Imipenem/Cilastati n Sodium 500 100 mls @ 200 mls /hr 03/30/19 13:00 04/04/19 13:36 mg/ Sodium Chlor alfonzo IV 200 mls/hr Q8H YONAS Administration Protocol Insulin Aspart 0 unit 03/30/19 08:00 04/04/19 11:53 Novolog SUBCUT 2 unit WM&BEDTIME YONAS Administration Protocol Lactulose 20 gm 04/03/19 08:45 04/04/19 12:38 Constulose PO Not Given Q2H YONAS Midodrine 10 mg 03/30/19 09:00 04/04/19 09:32 Proamatine PO 10 mg TID YONAS Administration Neomycin/Polymyxin /Dexamethasone 0 drop 03/30/19 02:00 04/04/19 13:41 Maxitrol Op Susp EYE-BOTH 1 drop Q4H YONAS Administration Nystatin 1 applic 03/30/19 09:00 04/04/19 09:33 Nystatin Cream TOPICAL 1 gm BID YONAS Administration Pantoprazole Sodiu m 40 mg 03/30/19 05:00 04/04/19 05:51 Protonix IVP 40 mg Q12H YONAS Administration Vitals/I&O/Wt Last Vital Signs Temp 98.5 F 04/04/19 11:49 Pulse 80 04/04/19 11:49 Resp 18 04/04/19 11:49 BP 140/78 04/04/19 11:49 Pulse Ox 100 04/04/19 11:49 04/03/19 04/04/19 04/04/19 22:59 06:59 14:59 Intake Total 220 / 620 944.167 / 1564.167 760 / 760 Output Total 1180 / 1180 410 / 1590 Balance -960 / -560 534.167 / -25.833 760 / 760 Weight last 48 hrs Weight 75.892 kg Physical Exam Const: COMMON NORMALS: no apparent distress, oriented x3 and alert HENMT: COMMON NORMALS: normocephalic and head/scalp atraumatic HEAD & SCALP: normocephalic and atraumatic Eye: GENERAL EYE: no normal appearance of both eyes (Has history of chronic conjunctivitis secondary to trauma) Neck/C-Spine: GENERAL: Yes normal visual inspection Resp: COMMON NORMALS: normal respiratory effort, no retractions, no use of accessory muscles and clear to auscultation bilaterally EFFORT & INSPECTION: Yes able to speak in complete sentences AUSCULTATION: clear to auscultation bilaterally Cardio: COMMON NORMALS: regular rate, regular rhythm, S1 normal heart sound, S2 normal heart sound, no murmurs and peripheral pulses 2+ throughout RATE: regular rate RHYTHM: regular rhythm HEART SOUNDS: S1 normal and S2 normal PERIPHERAL PULSES: pulses 2+ throughout GI: COMMON NORMALS: normal to inspection, nondistended, normoactive bowel sounds, soft to palpation and non-tender INSPECTION: Yes central obesity PALPATION: Yes soft Extremity: COMMON NORMALS: normal to inspection NARRATIVE EXTREMITY EXAM: Has PICC line on left upper extremity Neuro: COMMON NORMALS: oriented x3 and no focal motor deficits SENSORIUM/ORIENTATION: Yes alert Psych: COMMON NORMALS: cooperative Skin: COMMON NORMALS: no jaundice Data Micro: Micro: Microbiology 04/03/19 15:17 Blood Culture - Pr eliminary Blood SPECIMEN [facility] 04/03/19 15:09 Blood Culture - Pr eliminary Blood SPECIMEN [facility] A&P Assessment and plan (1) Complicated urinary tract infection: -has hx of prior ESBL E.coli UTI, treated with course of Primaxin with PICC line in place on d/c last month that for some unknown reason was kept in place even after completion of antibiotic therapy -urine culture grew ESBL E. coli -Has grown chronic bacteria and 2 out of 4 bottles of initial blood culture; has has had PICC line in place blood cultures from this source have been ordered and are currently pending -For now we will keep PICC line in place particularly due to difficult peripheral IV access and need for continued IV antibiotic therapy -Urinalysis strongly indicative of infection -Continue Primaxin -Contact isolation precautions Status: Acute Code(s): N39.0 - Urinary tract infection, site not specified (2) Positive blood culture: -Noted to grow cornyebacterium in 2 out of 4 bottles from initial blood culture done on 03/28, possible contaminants -Repeat blood culture from PICC line ordered and pending -On IV Primaxin Status: Acute Code(s): R78.81 - Bacteremia (3) Acute on chronic anemia: -Chronic transfusion dependent anemia (DOC, anemia of chronic disease); baseline Hg 8-9 -secondary to bleeding AVMs, in small bowel/duodenum; prior concern about esophageal variceal bleeding -GI workup done: EGD (2012): AVMs; Colonoscopy (10/2012): several sessile polyps -continue to monitor H/H; slight drop noted today; if continued trend downward may require transfusion of at least 1 unit PRBCs; repeat in a.m. -VSS; continue to monitor -supplemental oxygen if needed -fall precautions -has complicated hx of bleeding AVMs in the small bowel/duodenum, gastritis -follows up with Dr. 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 Echo (06/2017): EF=68%, mild LVH, trace MR, G1DD -HTN -hx of cerebellar CVA (03/2015) -MAYO on CKD stage 3; baseline Cr is around 1.4; renal function at baseline -Anxiety/Depression -Glaucoma, cataracts, chronic conjunctivitis secondary to trauma -ZEB -IDDM type II; last A1c-5.8 (08/2018) -GI ppx with PPI -DVT ppx SCDs; no AC due to anemia requiring transfusion -fall precautions; is WC bound at baseline -Dispo: return to [facility] -Code status: DNR/DNI; DPOA Haydee Morrison ([phone]) Attestations Medical Necessity Statement*: Patient requires continued hospitalization for continued IV antibiotic therapy pending repeat blood cultures as well as continued management of acute on chronic anemia Coding Level of Care Code Acute Digital Art Director for Chg Fwd Diagnoses Complicated urinary tract infection N39.0 Positive blood culture R78.81 Acute on chronic anemia D64.9 Hepatic encephalopathy K72.90
[2019-04-04 17:03] LABS: Glucose Point of Care 166 mg/dL (70-110)
[2019-04-04 21:21] LABS: Glucose Point of Care 177 mg/dL (70-110)
[2019-04-05] VITALS: BP 137/77; PULSE 96; RESP 22; TEMP 36.4; O2SAT 100
[2019-04-05] MEDS: neomycin-poly-dex Op 5 mL Btl EYE-BOTH ×6 (02:00→22:20)
[2019-04-05] MEDS: erythromycin Op Oint 1 gm 1 APPLIC EYE-RIGHT ×6 (03:00→22:20)
[2019-04-05 04:00] VITALS: BP 111/71; PULSE 91; RESP 17; TEMP 36.7; O2SAT 99
[2019-04-05 05:33] LABS: Basophils % 0.8 %; Eosinophils # 0.4 10^3/uL (0.0-0.8); Eosinophils % 9.8 %; Hematocrit 23.3 % (37.0-47.0); Lymphocytes # 0.7 10^3/uL (0.8-4.8); Lymphocytes % 17.5 %; Mean Corpuscular Hemoglobin 29.7 pg (28.0-34.0); Mean Corpuscular Volume 98.7 fL (81-99); Mean Platelet Volume 9.7 fL (7.4-10.4); Monocytes # 0.5 10^3/uL (0.2-0.9); Monocytes % 12.1 %; Neutrophils # 2.3 10^3/uL (1.8-7.7); Neutrophils % 59.3 %; Nucleated Red Blood Cells % 0 %; Platelet Count 197 10^3/cmm (130-400); Red Blood Count 2.36 10^6/uL (4.1-5.3); Red Cell Distribution Width 16.2 % (12.1-15.1); White Blood Count 3.9 10^3/uL (4.0-10.0)
[2019-04-05 05:55] LABS: Alanine Aminotransferase 10 U/L (0-33); Albumin Level 2.5 g/dL (3.5-5.2); Alkaline Phosphatase 98 IU/L (35-105); Anion Gap 13.2 (5-19); Aspartate Amino Transferase 36 U/L (0-32); Blood Urea Nitrogen 21 mg/dL (8-23); Calcium 10.5 mg/Dl (8.8-10.2); Carbon Dioxide 18 mmol/L (22-29); Chloride 112 mmol/L (98-107); Globulin 3.2 g/dL (1.3-4.6); Glomerular Filtration Rate 56.4 mL/min (90-130); Glucose 183 mg/dL (74-106); Potassium 4.2 mmol/L (3.5-5.1); Sodium 139 mmol/L (136-145); Total Bilirubin 0.7 mg/dL (0.15-1.2); Total Protein 5.7 g/dL (6.6-8.7)
[2019-04-05 05:56] LABS: Ammonia 61 umol/L (11-51)
[2019-04-05] MEDS: pantoprazole 40 mg SDV IVP ×2 (06:52→18:10)
[2019-04-05 07:15] LABS: Glucose Point of Care 188 mg/dL (70-110)
[2019-04-05 07:23] VITALS: BP 132/76; PULSE 99; RESP 22; TEMP 36.4; O2SAT 100
[2019-04-05] MEDS: nystatin cream 30 gm 1 APPLIC TOPICAL ×2 (10:03→18:18)
[2019-04-05] MEDS: midodrine 5 mg TABLET 10 MG PO ×3 (10:03→22:20)
[2019-04-05] MEDS: lactulose oral liq 20 gm/30 mL UDC PO ×4 (10:03→22:19)
[2019-04-05 11:07] VITALS: BP 126/68; PULSE 62; RESP 20; TEMP 526.1; TEMP 979; O2SAT 95
[2019-04-05 11:37] LABS: Glucose Point of Care 294 mg/dL (70-110)
--- NOTE | 2019-04-05 13:28 | PM.PN ---
Subjective Subjective: Interval history: A.m. labs noted, had 910 mL urine output overnight. Prelim blood cultures from PICC line and periphery negative. Noted drop in hemoglobin so will transfuse 1 unit PRBCs with dose of Lasix given after transfusion. Will discontinue IV fluids. Patient seen and examined, currently working with occupational therapy, is in very good spirits, was able to take a bath with assistance. Currently sitting in wheelchair. Explained need for transfusion which she is agreeable to. Vitals/I&O/Wt Last Vital Signs Temp 979 F H 04/05/19 11:07 Pulse 62 04/05/19 11:07 Resp 20 H 04/05/19 11:07 BP 126/68 04/05/19 11:07 Pulse Ox 95 04/05/19 11:07 04/04/19 04/05/19 04/05/19 22:59 06:59 14:59 Intake Total 340 / 1200 240 / 240 Output Total 1150 / 1150 Balance 340 / 1200 -910 / -910 Weight last 48 hrs Weight 95.254 kg Weight 75.892 kg Physical Exam Const: COMMON NORMALS: no apparent distress, oriented x3 and alert OTHER: Sitting in wheelchair by bedside HENMT: COMMON NORMALS: normocephalic and head/scalp atraumatic HEAD & SCALP: normocephalic and atraumatic TEETH & GINGIVA: Yes dentures (Lower) and Yes edentulous Eye: GENERAL EYE: no normal appearance of both eyes (Has history of chronic conjunctivitis secondary to trauma) Neck/C-Spine: GENERAL: Yes normal visual inspection Resp: COMMON NORMALS: normal respiratory effort, no retractions, no use of accessory muscles and clear to auscultation bilaterally EFFORT & INSPECTION: Yes able to speak in complete sentences AUSCULTATION: clear to auscultation bilaterally Cardio: COMMON NORMALS: regular rate, regular rhythm, S1 normal heart sound, S2 normal heart sound, no murmurs and peripheral pulses 2+ throughout RATE: regular rate RHYTHM: regular rhythm HEART SOUNDS: S1 normal and S2 normal PERIPHERAL PULSES: pulses 2+ throughout GI: COMMON NORMALS: normal to inspection, nondistended, normoactive bowel sounds, soft to palpation and non-tender INSPECTION: Yes central obesity PALPATION: Yes soft Extremity: COMMON NORMALS: normal to inspection NARRATIVE EXTREMITY EXAM: Has PICC line on left upper extremity Neuro: COMMON NORMALS: oriented x3 and no focal motor deficits SENSORIUM/ORIENTATION: Yes alert Psych: COMMON NORMALS: cooperative (In good spirits) Skin: COMMON NORMALS: no jaundice Data Micro: Micro: Microbiology 04/03/19 15:17 Blood Culture - Pr eliminary Blood NEGATIVE TO ESTEFANY E 04/03/19 15:09 Blood Culture - Pr eliminary Blood NEGATIVE TO ESTEFANY E A&P Assessment and plan (1) Complicated urinary tract infection: -has hx of prior ESBL E.coli UTI, treated with course of Primaxin with PICC line in place on d/c last month that for some unknown reason was kept in place even after completion of antibiotic therapy -urine culture grew ESBL E. coli -Has grown chronic bacteria and 2 out of 4 bottles of initial blood culture; has has had PICC line in place blood cultures from this source have been ordered and are prelim negative -For now we will keep PICC line in place particularly due to difficult peripheral IV access and need for continued IV antibiotic therapy -Urinalysis strongly indicative of infection -Continue Primaxin; day 7 -Contact isolation precautions Status: Acute Code(s): N39.0 - Urinary tract infection, site not specified (2) Positive blood culture: -Noted to grow cornyebacterium in 2 out of 4 bottles from initial blood culture done on 03/28, possible contaminants -Repeat blood culture from PICC line ordered and prelim negative -On IV Primaxin Status: Acute Code(s): R78.81 - Bacteremia (3) Acute on chronic anemia: -Chronic transfusion dependent anemia (DOC, anemia of chronic disease); baseline Hg 8-9 -secondary to bleeding AVMs, in small bowel/duodenum; prior concern about esophageal variceal bleeding -GI workup done: EGD (2012): AVMs; Colonoscopy (10/2012): several sessile polyps -continue to monitor H/H; slight drop noted today; will transfuse 1 unit PRBCs; repeat H/H in PM. We will give oral Lasix following transfusion to prevent fluid overload -VSS; continue to monitor -supplemental oxygen if needed -fall precautions -has complicated hx of bleeding AVMs in the small bowel/duodenum, gastritis -follows up with Dr. 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 Echo (06/2017): EF=68%, mild LVH, trace MR, G1DD -HTN -hx of cerebellar CVA (03/2015) -MAYO on CKD stage 3; baseline Cr is around 1.4; renal function at baseline, MAYO resolved -Anxiety/Depression -Glaucoma, cataracts, chronic conjunctivitis secondary to trauma -ZEB -IDDM type II; last A1c-5.8 (08/2018) -GI ppx with PPI -DVT ppx SCDs; no AC due to anemia requiring transfusion -fall precautions; is WC bound at baseline -Dispo: return to [facility] -Code status: DNR/DNI; DPOA Haydee Morrison ([phone]) Attestations Medical Necessity Statement*: Patient requires continued hospitalization for management of acutely worsening anemia requiring transfusion of blood products and monitoring of hemoglobin thereafter as well as continued IV antibiotic therapy for complicated UTI. Coding Level of Care Code Acute Hydrographical Technical Officer for Chg Fwd Diagnoses Complicated urinary tract infection N39.0 Positive blood culture R78.81 Acute on chronic anemia D64.9 Hepatic encephalopathy K72.90
[2019-04-05 15:06] VITALS: BP 136/84; PULSE 68; RESP 18; TEMP 36.8; O2SAT 95
[2019-04-05 16:26] LABS: Glucose Point of Care 125 mg/dL (70-110)
[2019-04-05] MEDS: FUROsemide 20 mg Tablet PO (16:48)
[2019-04-05 20:00] VITALS: BP 128/75; PULSE 105; RESP 18; TEMP 36.9; O2SAT 98
[2019-04-05 20:28] LABS: Hematocrit 21.8 % (37.0-47.0); Hemoglobin 6.6 g/dL (11.5-15.3)
[2019-04-05 21:34] LABS: Glucose Point of Care 197 mg/dL (70-110)
[2019-04-06] VITALS (17 sets, daily range): BP systolic 110–145; BP diastolic 55–89; PULSE 73–117; RESP 16–25; TEMP 36.3–37.3; O2SAT 97–100; BMI 26.2
[2019-04-06] MEDS: neomycin-poly-dex Op 5 mL Btl EYE-BOTH ×4 (02:00→14:53)
[2019-04-06] MEDS: erythromycin Op Oint 1 gm 1 APPLIC EYE-RIGHT ×4 (03:00→14:53)
[2019-04-06 06:20] LABS: Basophils # 0.1 10^3/uL (0.0-0.1); Basophils % 1.3 %; Eosinophils # 0.3 10^3/uL (0.0-0.8); Eosinophils % 6.9 %; Hematocrit 25.5 % (37.0-47.0); Hemoglobin 7.9 g/dL (11.5-15.3); Lymphocytes # 0.7 10^3/uL (0.8-4.8); Lymphocytes % 16.8 %; Mean Corpuscular Volume 93.8 fL (81-99); Mean Platelet Volume 9.6 fL (7.4-10.4); Monocytes # 0.6 10^3/uL (0.2-0.9); Monocytes % 14.8 %; Neutrophils # 2.4 10^3/uL (1.8-7.7); Neutrophils % 59.9 %; Nucleated Red Blood Cells % 0 %; Platelet Count 211 10^3/cmm (130-400); Red Blood Count 2.72 10^6/uL (4.1-5.3); Red Cell Distribution Width 15.4 % (12.1-15.1); White Blood Count 3.9 10^3/uL (4.0-10.0)
[2019-04-06] MEDS: pantoprazole 40 mg SDV IVP (06:34)
--- NOTE | 2019-04-06 07:44 | PM.DCS ---
Discharge Providers Date of Admission: 03/28/19 15:13 Date of Discharge: 04/06/19 Attending Provider at Admission: Vadim Swain Attending Provider at Discharge: Cassie Sams MD Primary Care Provider: Moe Sánchez DO Diagnoses at Discharge Discharge Diagnosis (1) Complicated urinary tract infection: Status: Acute Problem details: -has hx of prior ESBL E.coli UTI, treated with course of Primaxin with PICC line in place on d/c last month that for some unknown reason was kept in place even after completion of antibiotic therapy -urine culture grew ESBL E. coli -Has grown chronic bacteria and 2 out of 4 bottles of initial blood culture; has has had PICC line in place blood cultures from this source have been ordered and are prelim negative -For now we will keep PICC line in place particularly due to difficult peripheral IV access and need for continued IV antibiotic therapy -Urinalysis strongly indicative of infection -Continue Primaxin, dosed at 500 mg every 8 hrs; day 11/10 -Contact isolation precautions (2) Positive blood culture: Status: Acute Problem details: -Noted to grow cornyebacterium in 2 out of 4 bottles from initial blood culture done on 03/28, likely contaminants -Repeat blood culture from PICC line ordered and prelim negative -On IV Primaxin (3) Acute on chronic anemia: Status: Acute Problem details: -Chronic transfusion dependent anemia (DOC, anemia of chronic disease); baseline Hg 8-9 -secondary to bleeding AVMs, in small bowel/duodenum; prior concern about esophageal variceal bleeding -GI workup done: EGD (2012): AVMs; Colonoscopy (10/2012): several sessile polyps -continue to monitor H/H; slight drop noted today; will transfuse 1 unit PRBCs; repeat H/H in PM. We will give oral Lasix following transfusion to prevent fluid overload -VSS; continue to monitor -supplemental oxygen if needed -fall precautions -has complicated hx of bleeding AVMs in the small bowel/duodenum, gastritis -follows up with Dr. Benitez -No anticoagulation, NSAIDs or antiplatelet therapy due to bleeding risk -on PPI -f/u CBC to be done in 1 week (4) Hepatic encephalopathy: Status: Acute Problem details: -has hx of non-alcoholic cirrhosis with grade 1 esophageal varices s/p ablation -Child-Calderón class A; MELD-Na score-10 -ammonia improving (105-->61); continue to trend -continue Lactulose, titrate as needed for 3-4 soft BMs per day -fall/aspiration precautions -re-orient as needed -on dysphagia diet per ST evaluation Other Information Additional DC diagnoses/information: -Chronic diastolic CHF; no acute exacerbation. Echo (06/2017): EF=68%, mild LVH, trace MR, G1DD -HTN -hx of cerebellar CVA (03/2015) -MAYO on CKD stage 3; baseline Cr is around 1.4; renal function at baseline, MAYO resolved -Anxiety/Depression -Glaucoma, cataracts, chronic conjunctivitis secondary to trauma -ZEB -IDDM type II; last A1c-5.8 (08/2018) Reason for Visit Reason for Visit: Reason For Visit: Anemia;Hepatoencephalopathy;Ams Hospital Course Hospital Course: Patient was admitted to the medical surgical floor and started on lactulose due to hepatic encephalopathy. She was found to have a recurrent UTI secondary to ESBL E. coli and was restarted on Primaxin. She had had a PICC line placed during her prior admission that for an unknown reason remained in place even after completion of her IV antibiotic course. There was initial suspicion that patient's PICC line was a potential source of infection given that initial blood cultures grew cornyebacterium in 2 out of 4 bottles. This is likely contamination as on repeat cultures from the PICC line source have been prelim negative. Patient's mental status gradually improved over time. She initially was receiving lactulose enemas as she was unable to take this orally due to encephalopathy. She has a history of acute on chronic transfusion dependent anemia and received transfusion of blood products, last given today. Her baseline hemoglobin appears to be 8-9. PICC line has been left in place to complete her treatment course. As this is a recurrence of ESBL E. coli UTI she will be treated for total of 14 days. She may require follow-up CBC to continue to monitor hemoglobin and determine need for further transfusion. She has been on contact isolation precautions throughout her hospitalization. Patient's mental status is currently at her baseline. Physical Exam Const: COMMON NORMALS: no apparent distress, oriented x3 and alert OTHER: Sitting in wheelchair by bedside HENMT: COMMON NORMALS: normocephalic and head/scalp atraumatic HEAD & SCALP: normocephalic and atraumatic TEETH & GINGIVA: Yes dentures (Lower) and Yes edentulous Eye: GENERAL EYE: no normal appearance of both eyes (Has history of chronic conjunctivitis secondary to trauma) Neck/C-Spine: GENERAL: Yes normal visual inspection Resp: COMMON NORMALS: normal respiratory effort, no retractions, no use of accessory muscles and clear to auscultation bilaterally EFFORT & INSPECTION: Yes able to speak in complete sentences AUSCULTATION: clear to auscultation bilaterally Cardio: COMMON NORMALS: regular rate, regular rhythm, S1 normal heart sound, S2 normal heart sound, no murmurs and peripheral pulses 2+ throughout RATE: regular rate RHYTHM: regular rhythm HEART SOUNDS: S1 normal and S2 normal PERIPHERAL PULSES: pulses 2+ throughout GI: COMMON NORMALS: normal to inspection, nondistended, normoactive bowel sounds, soft to palpation and non-tender INSPECTION: Yes central obesity PALPATION: Yes soft Extremity: COMMON NORMALS: normal to inspection NARRATIVE EXTREMITY EXAM: Has PICC line on left upper extremity Neuro: COMMON NORMALS: oriented x3 and no focal motor deficits SENSORIUM/ORIENTATION: Yes alert Psych: COMMON NORMALS: cooperative (In good spirits) Skin: COMMON NORMALS: no jaundice Discharge Data Data Completed and Pending: Pending at discharge Category Date Time Status Blood Culture Sta t Lab 04/03/19 15:17 Results Labs from last 24 hours 04/06/19 04/05/19 04/05/19 05:59 21:23 20:18 WBC 3.9 L RBC 2.72 L Hgb 7.9 L 6.6 L Hct 25.5 L 21.8 L MCV 93.8 MCH 29.0 MCHC 31.0 RDW 15.4 H Plt Count 211 MPV 9.6 Neut % (Auto) 59.9 Lymph % (Auto) 16.8 [place] % (Auto) 14.8 Eos % (Auto) 6.9 Baso % (Auto) 1.3 Neut # (Auto) 2.4 Lymph # (Auto) 0.7 L [place] # (Auto) 0.6 Eos # (Auto) 0.3 Baso # (Auto) 0.1 Nucleated RBC % (a uto) 0 Nucleated RBCs # 0.0 POC Glucose 197 Blood Type Antibody Screen Antibody Identific ation Crossmatch 01/07/20 01/07/20 01/07/20 16:22 14:40 11:06 WBC RBC Hgb Hct MCV MCH MCHC RDW Plt Count MPV Neut % (Auto) Lymph % (Auto) [place] % (Auto) Eos % (Auto) Baso % (Auto) Neut # (Auto) Lymph # (Auto) [place] # (Auto) Eos # (Auto) Baso # (Auto) Nucleated RBC % (a uto) Nucleated RBCs # POC Glucose 125 294 Blood Type O Negative Antibody Screen Positive Antibody Identific ation Anti-D Crossmatch See Detail Vitals: Last Vital Signs Temp 97.7 F 04/06/19 07:37 Pulse 96 04/06/19 07:37 Resp 20 H 04/06/19 07:37 BP 139/80 04/06/19 07:37 Pulse Ox 100 04/06/19 07:37 Discharge Plan Discharge Patient Disposition: Xfer SNF Condition: Stable Prescriptions: New imipenem-cilastatin 500 mg recon soln 1 ml IV Q8H 6 Days Qty: 36 RF: 0 pantoprazole 40 mg tablet,delayed release (DR/EC) 40 mg PO DAILY 30 Days Qty: 30 RF: 0 Continued Vitamin C 1,000 mg Tablet 1,000 mg PO DAILY RF: 0 bupropion HCl 100 mg Tablet 100 mg PO DAILY RF: 0 ferrous sulfate 325 mg (65 mg iron) Tablet 325 mg PO BID RF: 0 furosemide 20 mg Tablet 20 mg PO DAILY RF: 0 Maxitrol 3.5 mg/g-10,000 unit/g-0.1 % Ointment 1 applic OPHTHALMIC (EYE) Q4H RF: 0 lactulose 10 gram/15 mL Solution 45 ml PO TID RF: 0 loratadine 10 mg Capsule 10 mg PO DAILY RF: 0 Changed Levemir FlexTouch U-100 Insuln 100 unit/mL (3 mL) Insulin Pen 20 unit SUBCUT BID Qty: 0 RF: 0 Discontinued Novolog U-100 Insulin aspart 100 unit/mL Solution 15 unit SUBCUT TID RF: 0 Discharge Orders: Discharge Order (Routine); Ordered 04/06/19 Ordered By: Cassie Sams Referrals: Moe Sánchez DO [Primary Care Provider] - 4-7 days Discharge Diet: Diabetic Discharge Activity: continue fall precautions, assist with ambulation as needed Activity Restrictions/Additional Instructions: Please check CBC in 1 week to continue to monitor hemoglobin Discharge Attestations Time Spent in Discharge Care*: greater than 30 min Quality Metrics Clinical Quality Measures During this hospital stay, did patient experience: None Coding Level of Care Code Acute Marketing Professional for Chg Fwd Exam Problem Focused Diagnoses Complicated urinary tract infection N39.0 Positive blood culture R78.81 Acute on chronic anemia D64.9 Hepatic encephalopathy K72.90
[2019-04-06] MEDS: lactulose oral liq 20 gm/30 mL UDC PO (08:03)
[2019-04-06] MEDS: midodrine 5 mg TABLET 10 MG PO ×2 (11:36→14:52)
[2019-04-06] MEDS: nystatin cream 30 gm 1 APPLIC TOPICAL (11:36)
[2019-04-06 12:14] LABS: Glucose Point of Care 181 mg/dL (70-110)
[2019-04-06 16:56] LABS: Glucose Point of Care 141 mg/dL (70-110)
== END 2019-04-06 14:00 | disposition skilled nursing facility (03) | DRG 441 ==
PROVIDERS: Admitting Provider Internal Medicine; Family Provider Internal Medicine; PCP Internal Medicine; Referring Provider Internal Medicine; Visit Provider Family Medicine
DX: K72.00 Acute and subacute hepatic failure without coma (principal); G92 Toxic encephalopathy; I13.0 Hypertensive heart and chronic kidney disease with heart failure and stage 1 through stage 4 chronic kidney disease, or unspecified chronic kidney disease; I50.32 Chronic diastolic (congestive) heart failure; N39.0 Urinary tract infection, site not specified; D64.9 Anemia, unspecified
CPT/HCPCS: 36415; 36416; 36430; 36592; 71045; 76705; 80048; 80053; 81001; 82140; 82274; 82962; 84443; 85014; 85018; 85025; 86850; 86870; 86900; 86901; 86902; 86920; 86922; 87040; 87086; 87205; 87804; 92526; 92610; 94762; 96372; 96375; 97110; 97116; 97161; 97165; 97530; 97535; 99284; 99285; C9113; J0743; J1815; J2060; J2270; J7050; P9016; P9040

== ENCOUNTER 2019-04-11 15:07 | Outpatient (RCR) | payer MEDICAID, SELFPAY ==
[2019-04-11 15:16] LABS: Basophils % 0.9 %; Eosinophils # 0.3 10^3/uL (0.0-0.8); Eosinophils % 7.9 %; Hematocrit 29.3 % (37.0-47.0); Hemoglobin 8.9 g/dL (11.5-15.3); Lymphocytes # 0.4 10^3/uL (0.8-4.8); Lymphocytes % 10.2 %; Mean Corpuscular HGB Conc 30.4 g/dL (30.0-36.0); Mean Corpuscular Hemoglobin 29.7 pg (28.0-34.0); Mean Corpuscular Volume 97.7 fL (81-99); Mean Platelet Volume 9.8 fL (7.4-10.4); Monocytes # 0.4 10^3/uL (0.2-0.9); Monocytes % 8.1 %; Neutrophils # 3.1 10^3/uL (1.8-7.7); Neutrophils % 72.4 %; Nucleated Red Blood Cells % 0 %; Platelet Count 257 10^3/cmm (130-400); Red Cell Distribution Width 15.9 % (12.1-15.1); White Blood Count 4.3 10^3/uL (4.0-10.0)
[2019-04-11 15:48] LABS: Anion Gap 15.3 (5-19); Blood Urea Nitrogen 20 mg/dL (8-23); Calcium 11.7 mg/Dl (8.8-10.2); Carbon Dioxide 23 mmol/L (22-29); Chloride 106 mmol/L (98-107); Glomerular Filtration Rate 45.7 mL/min (90-130); Glucose 235 mg/dL (74-106); Potassium 4.3 mmol/L (3.5-5.1); Sodium 140 mmol/L (136-145)
[2019-04-19 11:29] LABS: Basophils % 0.9 %; Eosinophils # 0.2 10^3/uL (0.0-0.8); Eosinophils % 7.5 %; Hematocrit 26.4 % (37.0-47.0); Lymphocytes # 0.5 10^3/uL (0.8-4.8); Lymphocytes % 16.5 %; Mean Corpuscular HGB Conc 30.3 g/dL (30.0-36.0); Mean Corpuscular Hemoglobin 29.4 pg (28.0-34.0); Mean Corpuscular Volume 97.1 fL (81-99); Mean Platelet Volume 9.8 fL (7.4-10.4); Monocytes # 0.3 10^3/uL (0.2-0.9); Neutrophils # 2.1 10^3/uL (1.8-7.7); Neutrophils % 65.8 %; Nucleated Red Blood Cells % 0 %; Platelet Count 247 10^3/cmm (130-400); Red Blood Count 2.72 10^6/uL (4.1-5.3); White Blood Count 3.2 10^3/uL (4.0-10.0)
== END 2019-04-29 23:59 | disposition home or self-care (01) ==
LOC: LAB 15:07
PROVIDERS: Family Provider Internal Medicine; Visit Provider Nurse Practitioner Family
DX: D64.9 Anemia, unspecified (principal); D62 Acute posthemorrhagic anemia
CPT/HCPCS: 80048; 85025